=== PATIENT | male | born 1945 | race American Indian/Alaskan Native ===

== ENCOUNTER 2016-11-03 05:59 | Day surgery (SDC) | payer MEDICAID ==
[2016-11-03] MEDS ORDERED: NACL 0.9% 500 ML 500 ML IV SCH (07:00)
[2016-11-03 07:09] LABS: Basophils % (Auto) 1.1 % (0.0-1.8); Eosinophils % (Auto) 2.6 % (0.0-4.3); Hematocrit 39.6 % (35.5-45.6); Hemoglobin 13.2 gm/dl (11.8-15.2); Mean Corpuscular HGB Conc 33 % (32-34); Mean Corpuscular Hemoglobin 33 pg (28-32); Mean Corpuscular Volume 98 fl (84-94); Platelet Count 143 K/mm3 (140-440); Red Blood Count 4.06 M/mm3 (3.65-5.03); Red Cell Distribution Width 17.2 % (13.2-15.2); White Blood Count 3.9 K/mm3 (4.5-11.0)
[2016-11-03 07:15] LABS: INR 1.27 (0.87-1.13)
[2016-11-03 07:24] LABS: Chloride 93.7 mmol/L (98-107); Potassium 5.4 mmol/L (3.6-5.0)
[2016-11-03] MEDS ORDERED: VERSED ONE (09:28)
[2016-11-03] MEDS ORDERED: BENADRYL ONE (09:28)
[2016-11-03] MEDS ORDERED: NACL 0.9% 250ML 250 ML ONE (09:29)
[2016-11-03] MEDS ORDERED: SUBLIMAZE ONE (09:29)
[2016-11-03] MEDS ORDERED: XYLOCAINE 2% INFILTRATI ONE (09:40)
[2016-11-03] MEDS ORDERED: HEPARIN/NS 5000 UNIT/500ML(CATH LAB) 500 ML IR ONE ×2 (09:40→09:50)
[2016-11-03] MEDS: NITROSTAT SL ONE ×3 (10:10→10:33)
[2016-11-03] MEDS ORDERED: APRESOLINE ONE (10:24)
[2016-11-03] MEDS ORDERED: CATAPRES PO PRN (10:25)
[2016-11-03] MEDS ORDERED: ULTRAM PO PRN (10:25)
--- NOTE | 2016-11-03 10:30 | Discharge Summary ---
Short Stay Discharge Plan Activity: advance as tolerated Weight Bearing Status: Partial Weight Bearing Diet: low fat, low cholesterol, low salt, diabetic Wound: keep clean and dry Special Instructions: no heavy lifting (3 days) Follow up with: DIANNE GUERRERO MD [Primary Care Provider] - 7 Days LAURIE AGUIAR MD [Staff Physician] - 7 Days
--- NOTE | 2016-11-03 10:46 | Cardiac Catherization Report ---
CARDIAC CATHETERIZATION REPORT REASON FOR PROCEDURE: The patient is a 71-year-old man, who presented to the [facility]iology [facility] for preoperative cardiac assessment in anticipation of C-spine surgery. A pre-surgery cardiac evaluation with Persantine thallium and echocardiogram were both abnormal. The echocardiogram demonstrated dilated cardiomyopathy with severe left ventricular systolic dysfunction, duration of the cardiomyopathy uncertain. The Persantine thallium was abnormal with evidence of possible small degree of lateral wall ischemia. The patient was recommended for cardiac catheterization. PROCEDURE: The patient was prepped and draped in a sterile fashion after informed consent. Right femoral artery was entered using the Seldinger technique followed by placement of a 6-American sheath. Selective left and right coronary angiography was performed using #4 right and left Ronnie catheters. A pigtail catheter was used for left ventricular angiography. The catheters were removed, sheaths removed, and hemostasis achieved using manual compression. The patient was returned to the post-procedure unit in stable condition. There were no complications. FINDINGS: HEMODYNAMICS: Left ventricle end diastolic pressure was 25, following coronary angiography. Ascending aortic pressure was 167/100. There was no significant pressure gradient on pullback across the aortic valve. CORONARY ANGIOGRAPHY: There was moderate to severe diffuse coronary calcification. The left main coronary artery contained minimal irregularities. The left anterior descending artery was notable for an eccentric, long, 50% to 70% stenosis of its proximal segment. Otherwise, no significant lesions were noted in the rest of the mid distal LAD and diagonal branches. The circumflex artery and its obtuse marginal branches contained no significant disease. The right coronary artery was dominant, this vessel was angiographically normal. The left ventricle was moderately dilated. There was moderately severe left ventricular systolic dysfunction with diffuse hypokinesis. Left ventricular ejection fraction estimated at 30%. CONCLUSION: 1. 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 2. Dilated cardiomyopathy, ejection fraction 30%. This would appear to be a predominantly nonischemic cardiomyopathy. RECOMMENDATION: 1. Aggressive risk factor modification and medical therapy. 2. Serial noninvasive stress testing for followup of borderline severity proximal LAD disease. JOB# [id number] CA/NTS
[2016-11-03 15:03] VITALS: BP 153/94
== END 2016-11-03 16:00 | disposition home or self-care (01) ==
LOC: CATHLABREC 05:59
PROVIDERS: ATTEND Internal Medicine Cardiovascular Disease
DX: I25.10 Atherosclerotic heart disease of native coronary artery without angina pectoris (principal); E11.22 Type 2 diabetes mellitus with diabetic chronic kidney disease; I13.2 Hypertensive heart and chronic kidney disease with heart failure and with stage 5 chronic kidney disease, or end stage renal disease; N18.6 End stage renal disease; I50.9 Heart failure, unspecified; D64.9 Anemia, unspecified; F32.9 Major depressive disorder, single episode, unspecified; Z99.2 Dependence on renal dialysis; Z86.73 Personal history of transient ischemic attack (TIA), and cerebral infarction without residual deficits; Z98.890 Other specified postprocedural states; Z79.4 Long term (current) use of insulin; Z79.01 Long term (current) use of anticoagulants; Z79.899 Other long term (current) drug therapy
CPT/HCPCS: 36415; 80048; 82962; 85025; 85610; 85730; 93005; 93010; 93458; C1894; J0360; J1200; J1644; J2250; J3010; J7050; Q9967